=== PATIENT | male | born 1970 | race Two or more races ===

== ENCOUNTER 2016-07-26 12:53 | Emergency (ER) | payer BC ==
[2016-07-26 13:14] VITALS: BP 147/83
[2016-07-26] MEDS ORDERED: Ketorolac 60 MG/2 ML SDV IM ONE (13:25)
--- NOTE | 2016-07-26 13:28 | EDM.PDOC ---
ED HPI GENERAL MEDICAL PROBLEM - General Chief Complaint: Back Pain or Injury Stated Complaint: BACK AND PAIN IN SIDES Time Seen by Provider: 07/26/16 13:05 Source of Information: Reports: Patient History Limitations: Reports: No Limitations - History of Present Illness INITIAL COMMENTS - FREE TEXT/NARRATIVE: Presents reporting back pain. 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 Yesterday he noticed some pain in his lower back but he continued to work. This morning however the pain was worse. He states that it is worsened by ambulating but gets better or goes away when he sits down. He also demonstrated his lifting technique to me which he lifts at the waist and does not use his legs. He states that that made it worse as well. He denies tingling or numbness in his buttocks, thighs, legs or feet. He also denies dysuria, fever, saddle anesthesia, cancer history, recent foreign travel or other medical problems. back pain Pain Score (Numeric/FACES): 8 - Related Data Allergies Allergy/AdvReac Type Severity Reaction Status Date / Time No Known Allergies Allergy Verified 07/26/16 13:10 Home Meds: Home Meds Cyclobenzaprine [Flexeril] 10 mg PO TID PRN #20 tablet 07/26/16 [Rx] Diclofenac Sodium [Voltaren] 1 tab PO TIDMEALS #30 tab.ec 07/26/16 [Rx] Past Medical History - Past Health History Medical/Surgical History: Denies Medical/Surgical History Social & Family History - Family History Family Medical History: Noncontributory - Tobacco Use Smoking Status *Q: Current Every Day Smoker Years of Tobacco use: 6 Packs/Tins Daily: 0.5 - Alcohol Use Days Per Week of Alcohol Use: 2 Number of Drinks Per Day: 12 Total Drinks Per Week: 24 - Recreational Drug Use Recreational Drug Use: No ED ROS GENERAL - Review of Systems Review Of Systems: ROS reveals no pertinent complaints other than HPI. ED EXAM,LOWER BACK PAIN/INJURY - Physical Exam Exam: See Below Exam Limited By: No Limitations General Appearance: Alert, No Apparent Distress Ears: Normal External Exam Nose: Normal Inspection Throat/Mouth: Normal Inspection Head: Atraumatic, Normocephalic Neck: Normal Inspection Respiratory/Chest: No Respiratory Distress, Lungs Clear, Normal Breath Sounds Cardiovascular: Normal Peripheral Pulses GI/Abdominal: Soft (Male) Exam: No Hernia Back Exam: Normal Inspection, Full Range of Motion. No: CVA Tenderness (L), CVA Tenderness (R), Decreased Range of Motion, Paraspinal Tenderness, Vertebral Tenderness Extremities: Normal Inspection, Normal Range of Motion Neurological: Alert, Normal Mood/Affect, Normal Gait, No Motor/Sensory Deficits , Oriented x 3 Course - Vital Signs Last Recorded V/S: Last Vital Signs Temp 36.2 C 07/26/16 13:10 Pulse 86 07/26/16 13:10 Resp 18 07/26/16 13:10 BP 147/83 H 07/26/16 13:10 Pulse Ox 98 07/26/16 13:10 Departure - Departure Time of Disposition: 13:27 Disposition: Home, Self-Care 01 Condition: Good Clinical Impression: Lumbar arthropathy - Discharge Information Referrals: PCP,None [Primary Care Provider] - [facility] [Outside] [facility] [Outside] Forms: ED Department Discharge Additional Instructions: 1. Muscle relaxant every 8 hours as needed. No driving or operating machinery 2. Diclofenac every 8 hours today and then as needed 3. Proper ergonomic technique with lifting 4. Physical therapy evaluate and treat 5. Follow-up in primary care
== END 2016-07-26 14:03 | disposition home or self-care (01) ==
LOC: MW.ED 12:53
DX: M47.816 Spondylosis without myelopathy or radiculopathy, lumbar region (principal); F17.210 Nicotine dependence, cigarettes, uncomplicated
CPT/HCPCS: 96372; 99283; J1885